=== PATIENT | female | born 1965 | race Caucasian/White ===

== ENCOUNTER → 2016-08-08 | Outpatient (CLI) | payer MEDICARE, OTHER ==
--- NOTE | 2016-08-08 15:11 | CT ---
CT right shoulder with contrast HISTORY: Pain, torn rotator cuff There is no comparison plain film Helical acquisition through the right shoulder following 100 cc Omni 300. No evident retraction of the rotator cuff. Difficult to exclude rotator cuff tear on the basis of thi s exam. There is hypertrophic change of the glenohumeral joint. Pseudocysts present in the humeral he ad. No abnormal enhancement following contrast administration. Distal acromial spur is present. Acrom ioclavicular joint arthropathy also present. No evident fracture or dislocation. Right lung shows emphysematous change, there is a pneumatocele present in the superior segment of th e right lower lobe. IMPRESSION: Correlate for impingement, rotator cuff tear not excluded on the basis of this exam. Jony ohumeral joint shows arthropathy change.
== END | disposition home or self-care (01) ==
LOC: RADCTMAIN 13:45
PROVIDERS: ATTEND Family Medicine
DX: M75.91 Shoulder lesion, unspecified, right shoulder (principal); M19.011 Primary osteoarthritis, right shoulder
CPT/HCPCS: 73201; Q9967

== ENCOUNTER → 2016-10-16 | Outpatient (CLI) | payer MEDICARE, OTHER ==
--- NOTE | 2016-10-20 23:13 | US ---
EXAMINATION TYPE: MSK ultrasound right shoulder DATE OF EXAM: 10/16/2016 COMPARISON: Correlation CT 08/08/2016 CLINICAL HISTORY: 50-year-old female M75.101 ROTATOR CUFF TEAR OF RT SHOULDER NO TRAUMA. . Patient wi th 2 1/2 months of worsening pain. Patient reports '4th time tearing the cuff with 3 prior surgeries. ' Recent steroid injection only lasted for a few days. TECHNIQUE: Multiple sonographic images of the right shoulder are obtained. FINDINGS: The long head biceps tendon is severely thickened, heterogeneous, and seems to contain a split tear. There is mild tenosynovial fluid along the long head biceps tendon sheath. Prominent bony irregularit y along the bicipital groove. Heterogeneity of the subscapularis tendon. The majority of the subscapularis tendon remains intact. Moderate degenerative joint space narrowing with marginal spurring and capsular hypertrophy at the ac romioclavicular joint. There is a full-thickness tear of the mid to posterior supraspinatus tendon fibers measuring 1.3 cm A P dimension. The torn stump is retracted by approximately 1.9 cm. There is fluid and debris within th e intervening gap. In addition, there is a 6 mm intrasubstance tear within the infraspinatus tendon with corresponding b narciso irregularity. Mild fluid within the lateral deltoid shelf communicating with the glenohumeral joint. Limited visualization of the posterior shoulder structures. No significant effusion within the it communications manager ior recess of the glenohumeral joint. Satisfactory supraspinatus and infraspinatus muscle bulk. No significant fatty infiltration. IMPRESSION: 1. Diffuse rotator cuff tendinosis. There is a full-thickness tear of the mid to posterior supraspina tus tendon (1.3 cm AP dimension) with the tendon stump retracted by 1.9 cm. 2. Additional small 6 mm intrasubstance tear of the infraspinatus tendon. 3. Marked long head biceps tendinosis with prominent spurring along the bicipital groove, associated tenosynovitis, and split tearing.
== END | disposition home or self-care (01) ==
LOC: RADUSWWP 12:56
PROVIDERS: ATTEND Family Medicine
DX: M75.121 Complete rotator cuff tear or rupture of right shoulder, not specified as traumatic (principal); S46.811A Strain of other muscles, fascia and tendons at shoulder and upper arm level, right arm, initial encounter; M75.21 Bicipital tendinitis, right shoulder; M65.811 Other synovitis and tenosynovitis, right shoulder

== ENCOUNTER 2019-05-04 16:36 | Emergency (ER) | payer MEDICARE, OTHER ==
[2019-05-04 17:24] VITALS: BP 137/75; PULSE 94; RESP 18; TEMP 97.9
--- NOTE | 2019-05-04 18:41 | ED ---
General Adult HPI - General Chief complaint: Extremity Problem,Nontraumatic Stated complaint: leg numbness/pain Time Seen by Provider: 05/04/19 18:16 Source: patient Mode of arrival: ambulatory Limitations: no limitations - History of Present Illness Initial comments: 53-year-old female who presents to emergency room today with a "charley horse" in the right groin area and some paresthesias in the right lower stomach from the knee distally. Patient reports that she has had intermittent discomfort in this area since November 2018. She states that she has had ultrasound completed. She states that she felt having increasing amount of pain. Today it is different because she has had paresthesias in the right lower extremity since 2:30 this afternoon and usually it only goes away after a minute. She denies any change in function to the leg. She denies any difficulty with walking. She denies any difficulty with flexion or extension at the joints. She denies any difference in strength of the lower extremities. Patient also reports that she had chest pain, onset was earlier today. She states as a sharp pain in the left side of the chest; relates "feels like a charley horse." It caused her to become diaphoretic. She states that she was nauseated but denied any vomiting. Has a history of hypertension and hyperlipidemia. She does smoke cigarettes on a regular basis. She denies any other complaints or concerns. - Related Data Allergies Allergy/AdvReac Type Severity Reaction Status Date / Time bee venom protein (honey bee) Allergy Swelling Verified 05/04/19 17:25 cephalexin [From Keflex] Allergy Swelling Verified 05/04/19 17:25 Penicillins Allergy Swelling Verified 05/04/19 17:25 sulfamethoxazole Allergy Swelling Verified 05/04/19 17:25 [From Bactrim] trimethoprim [From Bactrim] Allergy Swelling Verified 05/04/19 17:25 Review of Systems ROS Statement: Those systems with pertinent positive or pertinent negative responses have been documented in the HPI. ROS Other: All systems not noted in ROS Statement are negative. Past Medical History Past Medical History: Hypertension History of Any Multi-Drug Resistant Organisms: None Reported Additional Past Surgical History / Comment(s): back surgey, neck surgery, stent in carotid artery, carpal tunnel Past Psychological History: No Psychological Hx Reported Smoking Status: Current every day smoker Past Alcohol Use History: None Reported Past Drug Use History: None Reported General Exam Limitations: no limitations General appearance: alert, in no apparent distress Neck exam: Present: normal inspection Respiratory exam: Present: normal lung sounds bilaterally. Absent: respiratory distress, wheezes, rhonchi Cardiovascular Exam: Present: regular rate, normal rhythm, normal heart sounds GI/Abdominal exam: Present: soft, distended, tenderness, normal bowel sounds (There is tenderness to the right groin. There are 2+ bilateral femoral pulses.Bilateral pedal pulses. Tenderness right calf. Capillary refills less than 2 seconds. Sensation is intact.) Extremities exam: Present: normal inspection, full ROM, normal capillary refill, other (Full range of motion of the bilateral lower extremities with 5/5 strength testing against resistance of bilateral lower extremities at all joints. Patient is able to dorsiflex the bilateral great toes. There are 2+ bilateral pedal pulses. Capillary refill is less than 2 seconds. Patient's gait is normal and she walks around the emergency room with ease. Sensation is intact on exam bilateral lower extremities. There is mild tenderness in the right calf. There is moderate tenderness in the right groin. There are 2+ bilateral femoral pulses.) Neurological exam: Present: alert, oriented X3, normal gait, reflexes normal (2+ bilateral patellar reflexes, 2+ bilateral Achilles reflexes). Absent: motor sensory deficit Psychiatric exam: Present: normal affect, normal mood Skin exam: Present: warm, dry, intact, normal color Course Vital Signs 05/04/19 17:18 Temperature 97.9 F Pulse Rate 94 Respiratory 18 Rate Blood Pressure 137/75 O2 Sat by Pulse 98 Oximetry Medical Decision Making - Medical Decision Making 53-year-old female that presents to the emergency room today for evaluation of paresthesias in the right lower extremity and "charley horses" in her thigh as well as her chest. Patient had an ultrasound of the right lower extremity, venous, was negative for DVT. She does have 2+ bilateral pedal pulses with capillary refill less than 2 seconds. Sensation remains intact. She does report that she has some paresthesias in the right lower extremity from the knee distally, however sensation is intact. There is equal strength testing against resistance at all joints of the bilateral lower extremities. Patient requested pain medication, as was administered. In addition she had reported that she had "charley horse" chest pain and her chest left sided, patient has significant risk factors with hypertension hyperlipidemia and she is an every day cigarette smoker. She reported that she has a history of a coronary stent. Patient's EKG revealed normal sinus rhythm. She refused chest x-ray despite being encouraged to have a chest x-ray completed secondary to the pain in her chest. The patient was rude to staff on few occasions and had communicated via using obscenities. Patient and I discussed the reasoning for this testing and she did not want to have testing completed. I advised her that I was waiting for urinalysis as going to come back and reevaluate her. The patient became more upset and decided that she does not want to be in the emergency room any longer. I did discuss with patient that it would be best if she stayed here at the hospital for completion of care. I advised her that it was not a good idea to leave the hospital prior to completion of her care and then I wanted to admit her. She left AGAINST MEDICAL ADVICE. I went back to speak with her, however she was already gone. I wanted to admit the patient to the hospital for the discomfort that she was having in her chest secondary to her risk factors, however she left AGAINST MEDICAL ADVICE. - Lab Data Result diagrams: 05/04/19 19:34 05/04/19 19:34 Lab Results 05/04/19 05/04/19 05/04/19 Range/Units 19:34 19:34 19:34 WBC 7.4 (3.8-10.6) k/uL RBC 4.45 (3.80-5.40) m/uL Hgb 13.7 (11.4-16.0) gm/dL Hct 42.2 (34.0-46.0) % MCV 94.7 (80.0-100.0) fL MCH 30.7 (25.0-35.0) pg MCHC 32.4 (31.0-37.0) g/dL RDW 15.1 (11.5-15.5) % Plt Count 260 (150-450) k/uL Neutrophils % 65 % Lymphocytes % 25 % Monocytes % 5 % Eosinophils % 1 % Basophils % 3 % Neutrophils # 4.9 (1.3-7.7) k/uL Lymphocytes # 1.9 (1.0-4.8) k/uL Monocytes # 0.3 (0-1.0) k/uL Eosinophils # 0.1 (0-0.7) k/uL Basophils # 0.2 (0-0.2) k/uL Sodium 138 (137-145) mmol/L Potassium 3.8 (3.5-5.1) mmol/L Chloride 106 (98-107) mmol/L Carbon Dioxide 22 (22-30) mmol/L Anion Gap 10 mmol/L BUN 20 H (7-17) mg/dL Creatinine 0.91 (0.52-1.04) mg/dL Est GFR (CKD-EPI)AfAm 83 (>60 ml/min/1.73 sqM) Est GFR (CKD-EPI)NonAf 72 (>60 ml/min/1.73 sqM) Glucose 149 H (74-99) mg/dL Calcium 9.6 (8.4-10.2) mg/dL Total Bilirubin 0.5 (0.2-1.3) mg/dL AST 37 H (14-36) U/L ALT 33 (4-34) U/L Alkaline Phosphatase 57 (38-126) U/L Troponin I <0.012 (0.000-0.034) ng/mL Total Protein 7.4 (6.3-8.2) g/dL Albumin 4.5 (3.5-5.0) g/dL - EKG Data EKG shows normal: sinus rhythm EKG Comments: EKG was completed at 1855. Reveals normal sinus rhythm with a rate of 83. P1 38 QRS 78 QT/QTC 376/[address] elevation or depression noted. Disposition Clinical Impression: Right leg pain, Chest pain, Disturbance of skin sensation Disposition: Left Against Medical Advice Condition: Fair Is patient prescribed a controlled substance at d/c from ED?: No When asked, does pt state using other controlled substances?: No Referrals: Amrik Thorpe MD [Primary Care Provider] - 1-2 days
[2019-05-04 19:43] LABS: Basophils # (A) 0.2 k/uL (0-0.2); Basophils % (A) 3 %; Eosinophils # (A) 0.1 k/uL (0-0.7); Eosinophils % (A) 1 %; HCT 42.2 % (34.0-46.0); HGB 13.7 gm/dL (11.4-16.0); Lymphocytes # (A) 1.9 k/uL (1.0-4.8); Lymphocytes % (A) 25 %; MCH 30.7 pg (25.0-35.0); MCHC 32.4 g/dL (31.0-37.0); MCV 94.7 fL (80.0-100.0); Mean Platelet Volume 7.6; Monocytes # (A) 0.3 k/uL (0-1.0); Monocytes % (A) 5 %; Neutrophils # (A) 4.9 k/uL (1.3-7.7); Neutrophils % (A) 65 %; Platelet Count 260 k/uL (150-450); RBC 4.45 m/uL (3.80-5.40); RDW 15.1 % (11.5-15.5); WBC 7.4 k/uL (3.8-10.6)
[2019-05-04 19:54] LABS: Albumin 4.5 g/dL (3.5-5.0); Calcium 9.6 mg/dL (8.4-10.2); Total Bilirubin 0.5 mg/dL (0.2-1.3); Total Protein 7.4 g/dL (6.3-8.2)
[2019-05-04 20:00] LABS: Potassium 3.8 mmol/L (3.5-5.1)
[2019-05-04] MEDS ORDERED: MORPHINE SULFATE 4 MG/ML SYRINGE IV STA (20:14)
[2019-05-04] MEDS ORDERED: ONDANSETRON 4 MG/2 ML VIAL IVP STA (20:14)
--- NOTE | 2019-05-04 20:22 | US ---
EXAMINATION TYPE: US venous doppler duplex LE RT DATE OF EXAM: 05/04/2019 7:59 PM COMPARISON: NONE CLINICAL HISTORY: pain. Pain x 4 months. Worse x 6 hours. Numbness. No hx of DVT. Patient does not ta ke blood thinners. SIDE PERFORMED: Right TECHNIQUE: The lower extremity deep venous system is examined utilizing real time linear array sonog fredo with graded compression, doppler sonography and color-flow sonography. VESSELS IMAGED: External Iliac Vein (EIV) Common Femoral Vein Deep Femoral Vein Greater Saphenous Vein * Femoral Vein Popliteal Vein Small Saphenous Vein * Proximal Calf Veins (* superficial vessels) Right Leg: No evidence of DVT in veins imaged at this time from prox calf veins to EIV. IMPRESSION: Normal exam. No evidence of deep venous thrombosis on the right leg.
== END 2019-05-04 21:04 | disposition left against medical advice (07) ==
LOC: EC 16:36
DX: M79.604 Pain in right leg (principal); R07.9 Chest pain, unspecified; R20.2 Paresthesia of skin; R14.0 Abdominal distension (gaseous); R61 Generalized hyperhidrosis; R11.0 Nausea; F17.210 Nicotine dependence, cigarettes, uncomplicated; Z88.0 Allergy status to penicillin; Z88.1 Allergy status to other antibiotic agents; Z88.2 Allergy status to sulfonamides; Z91.030 Bee allergy status; Z86.79 Personal history of other diseases of the circulatory system; Z95.5 Presence of coronary angioplasty implant and graft; Z53.20 Procedure and treatment not carried out because of patient's decision for unspecified reasons
CPT/HCPCS: 36415; 93005; 80053; 84484; 85025; 93971; 99284; 96374; 96375; J2270; J2405

== ENCOUNTER → 2019-05-20 | Outpatient (CLI) | payer MEDICARE, OTHER | END | disposition home or self-care (01) | LOC: RADUSWWP 12:58 | PROVIDERS: ATTEND Family Medicine | DX: M79.661 Pain in right lower leg (principal); R20.2 Paresthesia of skin | CPT/HCPCS: 93923 ==

== ENCOUNTER 2019-06-11 17:33 | Observation (INO) | payer MEDICARE ==
[2019-06-11] MEDS ORDERED: ASPIRIN 81 MG PO STA (18:06)
--- NOTE | 2019-06-11 18:26 | ED ---
Chest Pain HPI - General Chief Complaint: Chest Pain Stated Complaint: Chest pain, leg numbness Time Seen by Provider: 06/11/19 18:06 Source: patient Mode of arrival: ambulatory Limitations: no limitations - History of Present Illness Initial Comments: Patient is a 53-year-old female with history of PAD and dyslipidemia presenting to emergency Department chief complaint of chest pain and leg pain. Patient states she's developed midsternal chest fullness about one hour prior to ED arrival. States the discomfort does not radiate anywhere. States the fullness is not exacerbated on exertion. Does report some light headedness whenever she stands up which started this morning. Does report some blurry vision but states that is her baseline due to some of the medication she is taking. Denies any diaphoretic episodes, shortness of breath or dyspnea. States she has a dull ache and a numbness and tingling sensation in the right lower extremity are baseline. States today she is also developed similar type symptoms in the left lower extremity up to the knee. States that she sees Dr. Norman in one week and is scheduled for an aortogram. Patient states she is known to have femoral and abdominal aorta occlusions. Denies abdominal pain or back pain. Denies any skin discoloration in the feet. Denies any temperature changes. - Related Data Allergies Allergy/AdvReac Type Severity Reaction Status Date / Time bee venom protein (honey bee) Allergy Swelling Verified 06/11/19 17:43 cephalexin [From Keflex] Allergy Swelling Verified 06/11/19 17:43 Penicillins Allergy Swelling Verified 06/11/19 17:43 sulfamethoxazole Allergy Swelling Verified 06/11/19 17:43 [From Bactrim] trimethoprim [From Bactrim] Allergy Swelling Verified 06/11/19 17:43 Review of Systems ROS Statement: Those systems with pertinent positive or pertinent negative responses have been documented in the HPI. ROS Other: All systems not noted in ROS Statement are negative. EKG Findings - EKG Comments: EKG Findings:: Sinus rhythm. Amitriptyline 90, OR 144, QRS 80, QTC 440. Past Medical History Past Medical History: Hypertension History of Any Multi-Drug Resistant Organisms: None Reported Additional Past Surgical History / Comment(s): back surgey, neck surgery, stent in carotid artery, carpal tunnel Past Psychological History: No Psychological Hx Reported Smoking Status: Current every day smoker Past Alcohol Use History: None Reported Past Drug Use History: None Reported General Exam Limitations: no limitations General appearance: alert, in no apparent distress Head exam: Present: atraumatic, normocephalic, normal inspection Eye exam: Present: normal appearance, PERRL, EOMI Pupils: Present: normal accommodation ENT exam: Present: normal exam, normal oropharynx, mucous membranes moist, TM's normal bilaterally, normal external ear exam Neck exam: Present: normal inspection, full ROM Respiratory exam: Present: normal lung sounds bilaterally. Absent: respiratory distress, wheezes, rales Cardiovascular Exam: Present: regular rate, normal rhythm, normal heart sounds GI/Abdominal exam: Present: soft. Absent: distended, tenderness, guarding, rebound Extremities exam: Present: normal inspection (Bilateral lower extremities are warm, nontender, not cyanotic.), full ROM, other (Able to detect dorsalis pedis and posterior tibialis on right lower extremity with ultrasound. Unable to detect the posterior tibialis on the left lower extremity but this has penis is detectable with ultrasound.). Absent: pedal edema Back exam: Present: normal inspection, full ROM Neurological exam: Present: alert, oriented X3 Psychiatric exam: Present: normal affect, normal mood Skin exam: Present: warm, dry, intact, normal color Course Vital Signs 06/11/19 06/11/19 17:40 18:35 Temperature 97.7 F Pulse Rate 73 87 Respiratory 18 20 Rate Blood Pressure 150/82 114/72 O2 Sat by Pulse 99 98 Oximetry Chest Pain MDM - Differential Diagnosis ACS - MDM Patient 53-year-old female with history of dyslipidemia and severe PVD presenting to emergency Department with a chief complaint of leg pain and chest pain. Patient is not to have bilateral lower extremity arterial occlusions. More so on the right than the left. She does have asymptomatic right leg up to the hip at baseline. Her left lower extremity is a symptomatically until today she has developed similar symptoms up to her knee. I was able to detect pulses using a Doppler in bilateral lower extremities. They're both warm with no signs of cyanosis. CT angios aorta with thoracic and abdominal runoff performed. Imaging shows moderately to severe stenosis of the lower abdominal aorta with extensive plaque formation. Multiple areas of plaque formation femoral arteries with at least 50% stenosis noted as well. No signs of aortic aneurysm, dissection or evidence of a pulmonary embolism. EKG shows normal sinus rhythm with no ST changes. Initial troponins are negative. CBC CMP is unremarkable. Considering the risk factors, , patient will be admitted for observation and serial troponins. Case discussed with . admitting physician is Dr. Anders Norman on consult. Disposition Clinical Impression: Chest pain, Abdominal aortic stenosis, Femoral artery stenosis, Left leg pain Disposition: ADMITTED IP TO THIS HOSP Condition: Stable Instructions (If sedation given, give patient instructions): Chest Pain (ED) Additional Instructions: Patient will be admitted Is patient prescribed a controlled substance at d/c from ED?: No Referrals: Amrik Thorpe MD [Primary Care Provider] - 1-2 days Time of Disposition: 20:11
[2019-06-11 18:32] LABS: Basophils % (A) 1 %; Eosinophils # (A) 0.1 k/uL (0-0.7); Eosinophils % (A) 1 %; HCT 39.9 % (34.0-46.0); HGB 12.9 gm/dL (11.4-16.0); Lymphocytes # (A) 1.4 k/uL (1.0-4.8); Lymphocytes % (A) 20 %; MCH 30.5 pg (25.0-35.0); MCHC 32.4 g/dL (31.0-37.0); MCV 94.1 fL (80.0-100.0); Mean Platelet Volume 7.6; Monocytes # (A) 0.7 k/uL (0-1.0); Monocytes % (A) 9 %; Neutrophils # (A) 4.7 k/uL (1.3-7.7); Neutrophils % (A) 66 %; Platelet Count 207 k/uL (150-450); RBC 4.23 m/uL (3.80-5.40); RDW 14.8 % (11.5-15.5); WBC 7.1 k/uL (3.8-10.6)
[2019-06-11 18:37] LABS: Partial Thromboplastin Time 23.3 sec (22.0-30.0); Prothrombin Time 9.9 sec (9.0-12.0)
[2019-06-11 18:38] LABS: ALT 40 U/L (4-34); AST 34 U/L (14-36); African American GFR (CKD) >90 (>60 ml/min/1.73 sqM); Albumin 4.4 g/dL (3.5-5.0); Alkaline Phosphatase 78 U/L (38-126); Anion Gap 11 mmol/L; Blood Urea Nitrogen 11 mg/dL (7-17); Calcium 9.7 mg/dL (8.4-10.2); Carbon Dioxide 22 mmol/L (22-30); Chloride 107 mmol/L (98-107); Glucose 137 mg/dL (74-99); Magnesium 1.9 mg/dL (1.6-2.3); Non-African American GFR(CKD) >90 (>60 ml/min/1.73 sqM); Sodium 140 mmol/L (137-145); Total Bilirubin 0.2 mg/dL (0.2-1.3); Total Protein 7.1 g/dL (6.3-8.2)
--- NOTE | 2019-06-11 19:06 | XR ---
EXAMINATION TYPE: XR chest 2V DATE OF EXAM: 06/11/2019 COMPARISON: 02/06/2016 HISTORY: Chest pain TECHNIQUE: 2 views FINDINGS: Heart and mediastinum are normal. Lungs are clear. Diaphragm is normal. Bony thorax appears normal. IMPRESSION: Normal chest. No change.
--- NOTE | 2019-06-11 19:42 | CT ---
CT scan angiogram of the chest abdomen pelvis with runoff. History bilateral leg weakness. Comparison none. TECHNIQUE: Multiple axial sections were obtained from the thoracic inlet to the bottom of the feet without and s ubsequently with intravenous contrast Isovue 100 mL. There are 3-D post processed images. FINDINGS: The lungs are clear of infiltrate. There is no evidence of a pulmonary mass. Heart size is normal. Th ere is coronary artery calcification. There is no thoracic aortic aneurysm or dissection. I see no fi lling defects in the pulmonary arteries. There is no mediastinal adenopathy. There are no hilar tyler s. There is no pleural effusion. Liver spleen stomach pancreas appear normal. There are clips from azucena cystectomy. Bile ducts are not dilated. There is no adrenal mass. Kidneys show normal size. There is satisfactory contrast opacification of the kidneys. There is no hydronephrosis. There is 3 cm cortica l cyst medial left kidney. There is some atheromatous change in the abdominal aorta. Ureters are not dilated. There is no retroperitoneal adenopathy. Bladder distends smoothly. Uterus is anteverted. The re is no free fluid in the pelvis. There is no inguinal hernia. Appendix is anterior and appears norm al. There is no mesenteric edema. There is no evidence of a bowel obstruction. There is no ascites or free air. There is patency of the celiac artery and superior mesenteric artery. There is bilateral patency of t he renal arteries. There is some plaque formation of the posterior wall of the lower abdominal aorta. There is stenosis of the lower abdominal aorta with lumen measuring 5 mm. There is bilateral patency of the iliac and femoral arteries. There is variable plaque formation in both superficial femoral arteries with areas of up to 50% steno sis. There is patency of the popliteal arteries. There is patency of the tibial arteries in the tibia l artery trifurcation. The tibial arteries appear small. There is arterial flow in the anterior tibia l arteries at the ankle bilaterally. There is bilateral posterior tibial artery flow at the ankles. I see no evidence of aneurysm or dissection. IMPRESSION: There is moderately severe stenosis of the lower abdominal aorta. Extensive plaque formation in the a bdominal aorta. Multiple areas of plaque formation in the femoral arteries with up to at least 50% stenosis. No aortic aneurysm or dissection. No evidence of pulmonary embolism.
[2019-06-11] MEDS ORDERED: NITROGLYCERIN SL TABS 0.4 MG TAB SUBLINGUAL PRN (20:12)
[2019-06-11] MEDS ORDERED: GABAPENTIN 300 MG CAP PO PRN (21:31)
[2019-06-11] MEDS ORDERED: CYCLOBENZAPRINE 10 MG TAB PO SCH (21:45)
[2019-06-11] MEDS ORDERED: MELOXICAM 7.5 MG TAB PO SCH (21:45)
[2019-06-11] MEDS ORDERED: LISINOPRIL-HCTZ 20-12.5 MG 1 EACH TAB PO SCH (21:45)
[2019-06-11] MEDS ORDERED: ATORVASTATIN 40 MG TAB PO SCH (21:45)
[2019-06-12 06:42] LABS: Cholesterol 164 mg/dL (<200); HDL Cholesterol 41 mg/dL (40-60); LDL Cholesterol,Calculated 85 mg/dL (0-99); Triglycerides 191 mg/dL (<150)
[2019-06-12 07:17] VITALS: BP 98/64; PULSE 72; RESP 18; TEMP 97.6
[2019-06-12] MEDS ORDERED: ASPIRIN 81 MG PO SCH (09:00)
[2019-06-12] MEDS ORDERED: ASPIRIN 325 MG TAB PO SCH (09:00)
--- NOTE | 2019-06-21 12:07 | DS ---
DISCHARGE SUMMARY DATE OF ADMISSION: 06/11/2019 DATE OF DISCHARGE: 06/12/2019 MEDICATIONS: 1. Mobic 7.5 daily. 2. Lipitor 40 mg daily. 3. Lisinopril hydrochlorothiazide 1 tab b.i.d. 26/03.5. 4. Flexeril 10 mg at night. 5. Oxycodone IR 30 mg at bedtime. 6. Oxycodone IR 5 mg t.i.d. 7. Neurontin 300 mg q.i.d. CONDITION: Stable. PROGNOSIS: Good. HOSPITAL COURSE OF EVENTS: This is a white female who came into the hospital and who was admitted and had aortic with runoff test due to possible blockage in her legs, which did show multiple blockages for which she is being seen with Dr. Katz with moderate severe stenosis, lower abdominal aortic and excessive system plaque and abdominal aorta. Please see further orders. MMODL / IJN: [id number] /
--- NOTE | 2019-06-21 20:07 | HP ---
HISTORY AND PHYSICAL [id number]-old white female came into the emergency room with chest pain and leg pain, midsternal chest pain about an hour prior to admission. She was admitted to the hospital with some blurred vision and some lower extremity pain. She is supposed to get an aortogram. She was admitted. ALLERGIES: ALLERGIES ARE TO BEE VENOM, CEPHALEXIN, BACTRIM. REVIEW OF SYSTEMS: Fourteen-point review of systems negative except for what is mentioned in the history of present illness. EKG: Sinus rhythm. PAST MEDICAL HISTORY: Hypertension, COPD, coronary artery disease with stent in the LAD. PAST SURGICAL HISTORY: Neck surgery, back surgery. Current everyday smoker. PHYSICAL EXAMINATION: VITAL SIGNS: Vital signs stable. Afebrile. Temperature 97.7, pulse 70s to 80s, respiratory rate 18 to 20, blood pressure is 114 to 150 over 70s to 80s, O2 98% to 99%. CARDIOVASCULAR: S1 and S2. LUNGS: Transmitted upper airway sounds. HEMATOLOGY: Negative Homans'. PSYCH: Fair mood and affect. NEUROLOGIC: Alert and oriented x3. VASCULAR: Normal dorsalis pedis, posterior tibial and radial pulse. SKIN: Warm,dry, intact. ASSESSMENT: Atypical chest pain, aortic stenosis of the abdominal aorta, femoral artery stenosis, left leg pain. Currently she was admitted to al and she will be discharged home today. Follow up with Dr. Katz after ruled out for coronary artery disease. JOSE CRUZL / FRANCISN: [id number] /
== END 2019-06-12 08:31 | disposition left against medical advice (07) ==
LOC: EC 17:33 → 1SOBS 20:04
PROVIDERS: ADMIT Family Medicine; ATTEND Family Medicine
DX: R07.89 Other chest pain (principal); R42 Dizziness and giddiness; H53.8 Other visual disturbances; M79.605 Pain in left leg; R20.0 Anesthesia of skin; Z53.29 Procedure and treatment not carried out because of patient's decision for other reasons; E78.5 Hyperlipidemia, unspecified; I10 Essential (primary) hypertension; J44.9 Chronic obstructive pulmonary disease, unspecified; I25.10 Atherosclerotic heart disease of native coronary artery without angina pectoris; G56.00 Carpal tunnel syndrome, unspecified upper limb; F17.200 Nicotine dependence, unspecified, uncomplicated; I70.0 Atherosclerosis of aorta; I70.203 Unspecified atherosclerosis of native arteries of extremities, bilateral legs; Z88.0 Allergy status to penicillin; Z88.1 Allergy status to other antibiotic agents; Z88.2 Allergy status to sulfonamides; Z91.030 Bee allergy status; Z95.5 Presence of coronary angioplasty implant and graft; Z95.828 Presence of other vascular implants and grafts; Z79.899 Other long term (current) drug therapy
CPT/HCPCS: 93005 ×2; 99285; 36415; 80061; 80053; 83735; 84484 ×2; 85025; 85610; 85730; 71046; 75635; 71275; G0378 ×2; Q9967

== ENCOUNTER 2019-06-18 11:06 | Day surgery (SDC) | payer MEDICARE ==
[2019-06-17 11:09] VITALS: BMI 29.6
[2019-06-18 11:31] VITALS: RESP 16; TEMP 97.8
[2019-06-18 20:41] VITALS: PULSE 84
[2019-06-18 20:45] VITALS: BP 138/82
== END 2019-06-18 18:00 | disposition home or self-care (01) ==
LOC: CATHCVL 11:06
PROVIDERS: ATTEND Internal Medicine Interventional Cardiology
DX: I70.0 Atherosclerosis of aorta (principal); I74.5 Embolism and thrombosis of iliac artery; I73.9 Peripheral vascular disease, unspecified; I10 Essential (primary) hypertension; E78.5 Hyperlipidemia, unspecified; F17.210 Nicotine dependence, cigarettes, uncomplicated; I25.10 Atherosclerotic heart disease of native coronary artery without angina pectoris; Z95.5 Presence of coronary angioplasty implant and graft; Z79.899 Other long term (current) drug therapy; Z79.82 Long term (current) use of aspirin; Z91.030 Bee allergy status; Z88.1 Allergy status to other antibiotic agents; Z88.0 Allergy status to penicillin; Z88.2 Allergy status to sulfonamides; Z82.49 Family history of ischemic heart disease and other diseases of the circulatory system
CPT/HCPCS: 36200; 75625; 75716; C1769 ×2; C1894; J2250; J2001; J1644; Q9966

== ENCOUNTER → 2019-08-09 | Outpatient (CLI) | payer MEDICARE | END | disposition home or self-care (01) | LOC: LABWHC1 11:41 | PROVIDERS: ATTEND Internal Medicine Interventional Cardiology | DX: Z53.9 Procedure and treatment not carried out, unspecified reason (principal) ==

== ENCOUNTER 2019-08-11 08:34 | Day surgery (SDC) | payer MEDICARE ==
[2019-08-05 12:38] VITALS: BMI 31.6
[~2019-08-11 08:34] MED LIST: ALPRAZolam 0.25 MG TAB PO PRN; ASPIRIN 325 MG TAB PO STA; SODIUM CHLORIDE 0.9% 1,000 ML in EMPTY BAG 1 BAG IV ONE
[2019-08-11 08:56] VITALS: RESP 18
[2019-08-11] MEDS ORDERED: MIDAZOLAM 2 MG/2 ML VIAL IVP ONE ×2 (09:28)
[2019-08-11] MEDS ORDERED: LIDOCAINE 1% INJ 10MG/ML (20 ML MDV) SQ ONE (09:29)
[2019-08-11] MEDS ORDERED: HEPARIN SODIUM 1,000 UN/ML (10ML VL) IV ONE ×2 (09:33→10:16)
[2019-08-11] MEDS ORDERED: HYDROmorphone 1 MG/ML 1 ML SYRINGE IVP ONE (09:34)
[2019-08-11] MEDS ORDERED: GABAPENTIN 300 MG CAP PO PRN (10:13)
[2019-08-11] MEDS ORDERED: SODIUM CHLORIDE 0.9% 1,000 ML in EMPTY BAG 1 BAG IV SCH (10:15)
[2019-08-11] MEDS ORDERED: CLOPIDOGREL 75 MG TAB PO ONE (10:16)
[2019-08-11] MEDS ORDERED: IOPAMIDOL-250 100ML BTL INTRAARTER ONE (10:17)
--- NOTE | 2019-08-11 10:39 | P.PCN ---
Date of Procedure: 08/11/19 Operative Findings: PERCUTANEOUS PERIPHERAL ARTERIAL INTERVENTION Performing physician: Ruslan Katz MD, [facility] Procedure performed: 1. Successful stenting of the infrarenal aorta using 8.0 x 39 mm ICAST stent with an excellent angiographic results 2. Intravascular ultrasound (IVUS) of the infrarenal aorta as well as a right common iliac artery 3. An angiogram of the infrarenal aorta 4. Right common iliac artery angiogram 5. Right common femoral artery angiogram Indication: This is a 53-year-old female patient with significant history of smoking who was experiencing bilateral lower extremities intermittent claudication severe enough and interfering with her daily activity, consistent with Maureen class IIa. She underwent initially a CTA subsequently an angiogram that revealed critical disease involving the infrarenal aorta which was extremely calcified. Because of that she was brought today to undergo an intervention. Approach: Right common femoral artery Complication: None Level of sedation: Moderate with a sedation length of 40 minutes Procedure description: After obtaining an informed consent the patient was brought to the cardiac label press operator. The right common femoral artery was cannulated using micropuncture technique, the micropuncture wire passed easily then I place a 7-Nigerien only 3 cm bright tip at the right common femoral artery over an 035 stiff Glidewire. At that point anticoagulation was initiated using heparin and the patient was given a total of 8000 use of heparin was 5000 at the beginning of the procedure and 3000 at the end of the procedure. Please note that continuous ACT monitoring was done. At that point I did across the lesion at the aorta using an 035 stiff Glidewire. I attempted crossing the lesion using an 035 glide advantage wire but that was unsuccessful. I did cross the lesion using stiff Glidewire with a backup support of 035 CXR I catheter. Subsequently I did exchange my 035 stiff Glidewire into an [address] wire repairing to do intravascular ultrasound of the aorta. I did advance the ultrasound catheter over the 014 wire proximal to the lesion then I did manual pullback all the way to the right common iliac artery. The intravascular ultrasound revealed extremely calcified aorta with eccentric plaque appears to be in the range of at least 70-80% involving the infrarenal aorta. There was also another plaque involving the ostial right common iliac artery seems to be in the range of 60-70%. I confirm that by doing an angiogram with injection through the sheath itself which revealed the location and plaque of the infrarenal aorta as well as location and plaque of the right ostial common iliac artery. After reviewing everything I decided to stent the infrarenal aorta and treat medically the lesion of the right common iliac artery because it was not flow-limiting. At that point I did do balloon angioplasty of the infrarenal aorta using initially 6 mm Angiosculp balloon and subsequently 7 mm regular balloon. Subsequently I deployed 8.0 x 39 mm ICAST balloon expandable stent where the stent was prepped and advanced over the 035 glide advantage wire to the infrarenal aorta after angiogram was performed and the screen was fixed and marked as well. The stent was deployed under 12 bernadette for about 30 seconds. The final angiogram showed excellent angiographic results and the procedure at that point was completed without any complication Subsequently I did exchange my 23 cm bright tip sheath into an 11 cm 7-Nigerien sheath using the glide advantage wire. By the end I did selective right common femoral artery angiogram. The procedure was completed without any complication Postprocedure management: 1. Dual antiplatelet therapy 2. Smoking cessation 3. Follow-up with the patient
[2019-08-11] MEDS: LISINOPRIL-HCTZ 20-12.5 MG 1 EACH TAB PO SCH (19:39)
[2019-08-11] MEDS ORDERED: ATORVASTATIN 40 MG TAB PO SCH (21:00)
[2019-08-11] MEDS ORDERED: CYCLOBENZAPRINE 10 MG TAB PO SCH (21:00)
[2019-08-11] MEDS ORDERED: MELOXICAM 7.5 MG TAB PO SCH (21:00)
[2019-08-12 06:14] LABS: Basophils % (A) 1 %; Eosinophils # (A) 0.1 k/uL (0-0.7); Eosinophils % (A) 2 %; HCT 39.8 % (34.0-46.0); HGB 13.5 gm/dL (11.4-16.0); Lymphocytes # (A) 1.6 k/uL (1.0-4.8); Lymphocytes % (A) 21 %; MCH 32.5 pg (25.0-35.0); MCV 95.7 fL (80.0-100.0); Mean Platelet Volume 7.1; Monocytes # (A) 0.7 k/uL (0-1.0); Monocytes % (A) 10 %; Neutrophils # (A) 4.8 k/uL (1.3-7.7); Neutrophils % (A) 64 %; Platelet Count 201 k/uL (150-450); RBC 4.16 m/uL (3.80-5.40); RDW 14.7 % (11.5-15.5); WBC 7.5 k/uL (3.8-10.6)
[2019-08-12 06:24] LABS: African American GFR (CKD) >90 (>60 ml/min/1.73 sqM); Anion Gap 6 mmol/L; Blood Urea Nitrogen 19 mg/dL (7-17); Calcium 9.4 mg/dL (8.4-10.2); Carbon Dioxide 24 mmol/L (22-30); Chloride 106 mmol/L (98-107); Glucose 100 mg/dL (74-99); Non-African American GFR(CKD) >90 (>60 ml/min/1.73 sqM); Potassium 4.5 mmol/L (3.5-5.1); Sodium 136 mmol/L (137-145)
[2019-08-12 08:12] VITALS: BP 114/60; PULSE 91; TEMP 98.6
[2019-08-12] MEDS: LISINOPRIL-HCTZ 20-12.5 MG 1 EACH TAB PO SCH (08:13)
--- NOTE | 2019-08-12 08:29 | P.DS ---
Providers Date of admission: August 102019 Attending physician: Ruslan Katz Primary care physician: [facility] Hospital Course: This is a 53-year-old female patient who was diagnosed recently was critical disease involving the infrarenal aorta causing her to have severe bilateral lower extremities intermittent claudication. She underwent yesterday successful percutaneous stenting of the infrarenal aorta using covered stent with an excellent angiographic results and without any complication from a right groin approach. She was seen and examined this morning. The right groin is soft and nontender and without any bruises. She is going to be discharged on dual antiplatelet therapy along with a statin. I will follow-up with the patient next week in the office Plan - Discharge Summary Discharge Rx Participant: No New Discharge Prescriptions: New Clopidogrel [Plavix] 75 mg PO DAILY #90 tab Continue Meloxicam [Mobic] 7.5 mg PO HS Atorvastatin [Lipitor] 40 mg PO HS Lisinopril-Hctz 20-12.5 mg [Zestoretic 20-12.5] 1 tablet PO BID Cyclobenzaprine [Flexeril] 10 mg PO HS oxyCODONE HCL [oxyCODONE HCL (IR)] 30 mg PO HS oxyCODONE HCL [oxyCODONE HCL (IR)] 5 mg PO TID Gabapentin [Neurontin] 300 mg PO QID PRN PRN Reason: Muscle Pain Aspirin 325 mg PO DAILY Discharge Medication List Atorvastatin [Lipitor] 40 mg PO HS 06/11/19 [History] Cyclobenzaprine [Flexeril] 10 mg PO HS 06/11/19 [History] Gabapentin [Neurontin] 300 mg PO QID PRN 06/11/19 [History] Lisinopril-Hctz 20-12.5 mg [Zestoretic 20-12.5] 1 tablet PO BID 06/11/19 [History] Meloxicam [Mobic] 7.5 mg PO HS 06/11/19 [History] oxyCODONE HCL [oxyCODONE HCL (IR)] 5 mg PO TID 06/11/19 [History] oxyCODONE HCL [oxyCODONE HCL (IR)] 30 mg PO HS 06/11/19 [History] Aspirin 325 mg PO DAILY 08/05/19 [History] Clopidogrel [Plavix] 75 mg PO DAILY #90 tab 08/12/19 [Rx] Follow up Appointment(s)/Referral(s): Ruslan Katz MD [STAFF PHYSICIAN] - 1 Week
[2019-08-12] MEDS ORDERED: CLOPIDOGREL 75 MG TAB PO SCH (09:00)
[2019-08-12] MEDS ORDERED: ASPIRIN 325 MG TAB PO SCH (09:00)
--- NOTE | 2019-08-12 09:58 | IR ---
Fluoroscopy HISTORY: Pain 11.3 minutes fluoroscopy time supplied to the referring clinician. 178 intraoperative C-arm images d ocument the procedure. See dictated report from cardiology.
== END 2019-08-12 10:45 | disposition home or self-care (01) ==
LOC: CATHCVL 08:34 → 3SCARD 10:12 → CATHCVL 08-12 10:45
PROVIDERS: ATTEND Internal Medicine Interventional Cardiology
DX: I70.0 Atherosclerosis of aorta (principal); I70.213 Atherosclerosis of native arteries of extremities with intermittent claudication, bilateral legs; I10 Essential (primary) hypertension; E78.5 Hyperlipidemia, unspecified; F17.210 Nicotine dependence, cigarettes, uncomplicated; Z95.820 Peripheral vascular angioplasty status with implants and grafts; Z82.49 Family history of ischemic heart disease and other diseases of the circulatory system; Z79.1 Long term (current) use of non-steroidal anti-inflammatories (NSAID); Z79.82 Long term (current) use of aspirin; Z79.891 Long term (current) use of opiate analgesic; Z79.899 Other long term (current) drug therapy; Z88.2 Allergy status to sulfonamides; Z88.1 Allergy status to other antibiotic agents; Z91.030 Bee allergy status
CPT/HCPCS: 37236; 37252; 80048; 85025; C1894 ×2; C1874; C1769 ×4; C1725; C1753; J2250; J2001; J1644; J1170; Q9966; 37237

== ENCOUNTER → 2023-02-26 | Outpatient (CLI) | payer MEDICARE ==
--- NOTE | 2023-02-26 14:17 | CTL ---
EXAMINATION TYPE: CT Low Dose Lung DATE OF EXAM: 02/26/2023 2:04 PM CLINICAL INDICATION:Female, 57 years old with history of Z12.2 ENCNTR SCREEN FOR MALIGNANT NEOPLASM,F 17.210; personal hx of nicotine dependence, COPD , history of tobacco use. COMPARISON: None. TECHNIQUE: Multiple axial non-contrast scans were obtained from approximately the lung apices through the upper abdomen. Coronal and sagittal reformatted images were obtained. Low dose technique was uti lized. CT DLP: 63 mGycm, Automated exposure control for dose reduction was used. CT Contrast: Contrast used: None Oral contrast used: None FINDINGS: ======== Lack of intravenous contrast and low dose technique limits the evaluation of the vascular and soft ti ssue structures. LUNGS: No evidence of pulmonary fibrosis. No evidence of focal consolidation, pneumothorax or pleural effusion. Mild centrilobular emphysema changes throughout the lungs. Nodules: RUL: 3 mm series 10 image 9, intrafissural lymph node along the minor fissure series 10 image 29 RML: None. RLL: None. AMIRA: None. LLL: None. AIRWAY: Patent and unremarkable. HEART: Size within normal limits. Atherosclerosis of the coronary arteries. MEDIASTINUM: No gross evidence of adenopathy. VASCULATURE: Atherosclerotic calcifications are present throughout the aorta and its branches. MUSCULOSKELETAL: Moderate disc degeneration changes are present throughout the thoracolumbar spine. SOFT TISSUES/LYMPH NODES: Unremarkable. LOWER NECK: No significant findings. UPPER ABDOMEN: The gallbladder surgically absent. IMPRESSION: 1. No clinically significant pulmonary nodules. 2. Mild emphysema changes. CT LUNG RAD AND CT CHEST RECOMMENDATION: Lung-Rad 2 Benign Appearance or Behavior: Continue annual sc reening with LDCT in 12 months. S Modifier (other clinically significant findings): None Recommend smoking cessation (if current smoker), or continuation of smoking cessation (if prior smoke r). Annual screening for lung cancer with low-dose computed tomography is recommended in adults ages 55 to 77 years who have a 30 pack-year smoking history and currently smoke or have quit within the pa st 15 years. Screening should be discontinued once a person has not smoked for 15 years or develops a health problem that substantially limits life expectancy or the ability or willingness to have curat beka lung surgery. Lung rads 2021 [email or web address]
== END | disposition home or self-care (01) ==
LOC: RADCTMAIN 13:27
PROVIDERS: ATTEND Family Medicine
DX: Z12.2 Encounter for screening for malignant neoplasm of respiratory organs (principal); J43.2 Centrilobular emphysema; F17.210 Nicotine dependence, cigarettes, uncomplicated
CPT/HCPCS: 71271

== ENCOUNTER 2023-08-13 17:59 | Emergency (ER) | payer MEDICARE ==
[2023-08-13 18:42] VITALS: BP 126/61; PULSE 79; RESP 18; TEMP 97.8
--- NOTE | 2023-08-13 18:42 | ED ---
Fall HPI - General Source: patient, RN notes reviewed Mode of arrival: ambulatory <Folwer Chopra - Last Filed: 08/13/23 18:40> - General Source: patient, RN notes reviewed <Lucinda Zunigana - Last Filed: 08/13/23 21:21> - General Chief Complaint: Fall Stated Complaint: Fall Time Seen by Provider: 08/13/23 18:12 - History of Present Illness Initial Comments: Ivy bharti is a 57-year-old female presents emergency department chief complaint of a fall that occurred last week on 08/04. States that she was getting out of a lifted truck when she slipped and fell hitting her face. states that the patient was unconscious for a few moments. She has been experiencing mild headache in addition to bruising on her anterior forehead and bilateral eyes. Denies use of blood thinners. (Flower Chopra) 57-year-old female presenting with chief complaint of head injury that occurred on 08/04, approximately 1 week ago. Patient states that she was getting out of a truck when she slipped and fell onto the cement of her driveway, landing directly on her face. reports she was unconscious for approximately 5 seconds. Patient states she is still having increased pressure behind her eyes and in her head. She also admits some episodes of blurry vision when she is trying to focus on an object. Denies headache, weakness, numbness, tingling. She takes a baby aspirin daily but denies any other blood thinners. Denies other injuries. (Hellen Zuniga) - Related Data Home Medications Medication Instructions Recorded Confirmed Atorvastatin [Lipitor] 40 mg PO HS 06/11/19 08/13/23 Cyclobenzaprine [Flexeril] 10 mg PO HS PRN 06/11/19 08/13/23 Gabapentin [Neurontin] 300 mg PO HS 06/11/19 08/13/23 Lisinopril-Hctz 20-12.5 mg 1 tablet PO BID 06/11/19 08/13/23 [Zestoretic 20-12.5] Meloxicam [Mobic] 7.5 mg PO DAILY 06/11/19 08/13/23 Aspirin 325 mg PO DAILY 08/05/19 08/13/23 Topiramate [Topamax] 100 mg PO BID 08/13/23 08/13/23 traMADol HCL 50 mg PO TID PRN 08/13/23 08/13/23 Allergies Allergy/AdvReac Type Severity Reaction Status Date / Time bee venom protein (honey bee) Allergy Anaphylaxis, Verified 08/13/23 19:36 Swelling all over body cephalexin [From Keflex] Allergy Anaphylaxis, Verified 08/13/23 19:36 Swelling all over body ciprofloxacin [From Cipro] Allergy Anaphylaxis, Verified 08/13/23 19:36 Swelling all over body Penicillins Allergy Anaphylaxis, Verified 08/13/23 19:36 Swelling all over body sulfamethoxazole Allergy Anaphylaxis, Verified 08/13/23 19:36 [From Bactrim] Swelling all over body trimethoprim [From Bactrim] Allergy Anaphylaxis, Verified 08/13/23 19:36 Swelling all over body Review of Systems ROS Other: All systems not noted in ROS Statement are negative. <Flower Chopra - Last Filed: 08/13/23 18:40> ROS Other: All systems not noted in ROS Statement are negative. <Hellen Zuniga - Last Filed: 08/13/23 21:21> ROS Statement: Those systems with pertinent positive or pertinent negative responses have been documented in the HPI. Past Medical History Past Medical History: Hypertension Additional Past Medical History / Comment(s): PAD. Pain in Saurav leg/hips. History of Any Multi-Drug Resistant Organisms: None Reported Past Surgical History: Section Additional Past Surgical History / Comment(s): back surgey, neck surgery, stent in carotid artery, carpal tunnel, BL knees scope Past Anesthesia/Blood Transfusion Reactions: No Reported Reaction Past Psychological History: No Psychological Hx Reported Smoking Status: Current every day smoker Past Alcohol Use History: None Reported Past Drug Use History: None Reported - Past Family History Mother Family Medical History: Cancer Additional Family Medical History / Comment(s): Breast, mets to brain, liver, lungs <Flower Chopra - Last Filed: 08/13/23 18:40> General Exam Limitations: no limitations <Flower Chopra - Last Filed: 08/13/23 18:40> General appearance: alert, in no apparent distress Head exam: Present: other (Contusion present on left side superior portion of scalp. +ttp along left parietal portion of scalp.) Eye exam: Present: PERRL, EOMI, periorbital tenderness. Absent: normal appearance (Contusions present around bilateral eyes and on bilateral forehead. + Raccoon eyes. Diffuse tender to palpation around periorbital bones.), conjunctival injection Pupils: Present: normal accommodation ENT exam: Present: normal exam, mucous membranes moist, TM's normal bilaterally (Negative Bowles sign) Neck exam: Present: normal inspection. Absent: tenderness, meningismus, lymphadenopathy Respiratory exam: Present: normal lung sounds bilaterally. Absent: respiratory distress, wheezes, rales, rhonchi, stridor Cardiovascular Exam: Present: regular rate, normal rhythm, normal heart sounds. Absent: systolic murmur, diastolic murmur, rubs, gallop, clicks Extremities exam: Present: normal inspection, full ROM, normal capillary refill. Absent: tenderness, pedal edema, joint swelling, calf tenderness Neurological exam: Present: alert, oriented X3, CN II-XII intact Skin exam: Present: warm, dry, intact, normal color. Absent: rash <Hellen Zuniga - Last Filed: 08/13/23 21:21> - General Exam Comments Initial Comments: Visual Physical Exam Vital signs reviewed General: Well-appearing, nontoxic, no acute distress. Head: Normocephalic, atraumatic Eyes: PERRLA, EOMI ENT: Airway patent Chest: Nonlabored breathing Skin: No visual rash, normal skin tone Neuro: Alert and oriented 3 Musculoskeletal: No gross abnormalities (Flower Chopra) Course Vital Signs 08/13/23 18:20 Temperature 97.8 F Pulse Rate 79 Respiratory 18 Rate Blood Pressure 126/61 O2 Sat by Pulse 96 Oximetry Medical Decision Making <Flower Chopra - Last Filed: 08/13/23 18:40> <Hellen Zuniga - Last Filed: 08/13/23 21:21> - Medical Decision Making I completed the quick note portion of this chart signed Flower Chopra PA-C (Flower Chopra) Was pt. sent in by a medical professional or institution ([facility] Batista, CALL CENTER SUPPORT REPRESENTATIVE, urgent care, hospital, or care home...) When possible be specific @ -No Did you speak to anyone other than the patient for history (EMS, parent, family, police, friend...)? What history was obtained from this source @ -Patient's supplemented history Did you review nursing and triage notes (agree or disagree)? Why? @ -I reviewed and agree with nursing and triage notes Were old charts reviewed (outside hosp., previous admission, EMS record, old EKG, old radiological studies, urgent care reports/EKG's, care home records)? Report findings @ -No old charts were reviewed Differential Diagnosis (chest pain, altered mental status, abdominal pain women, abdominal pain men, vaginal bleeding, weakness, fever, dyspnea, syncope, headache, dizziness, GI bleed, back pain, seizure, CVA, palpatations, mental health, musculoskeletal)? @ -Intracranial bleed, concussion, hematoma, facial fracture, cervical fracture EKG interpreted by me (3pts min.). @ -None X-rays interpreted by me (1pt min.). @ -None done CT interpreted by me (1pt min.). @ -CT of facial bones and brain negative for acute process U/S interpreted by me (1pt. min.). @ -None done What testing was considered but not performed or refused? (CT, X-rays, U/S, labs)? Why? @ -None What meds were considered but not given or refused? Why? @ -None Did you discuss the management of the patient with other professionals (professionals i.e. , PA, CALL CENTER SUPPORT REPRESENTATIVE, lab, RT, psych nurse, healthcare social worker, litigation services manager, teacher, security officer, caseworker protective services)? Give summary @ -No Was smoking cessation discussed for >3mins.? @ -No Was critical care preformed (if so, how long)? @ -No Were there social determinants of health that impacted care today? How? (Homelessness, low income, unemployed, alcoholism, drug addiction, transportation, low edu. Level, literacy, decrease access to med. care, retirement, r ehab)? @ -No Was there de-escalation of care discussed even if they declined (Discuss DNR or withdrawal of care, Hospice)? DNR status @ -No What co-morbidities impacted this encounter? (DM, HTN, Smoking, COPD, CAD, Cancer, CVA, ARF, Chemo, Hep., AIDS, mental health diagnosis, sleep apnea, morbid obesity)? @ -None Was patient admitted / discharged? Hospital course, mention meds given and route, prescriptions, significant lab abnormalities, going to OR and other pertinent info. @ -Patient was discharged. Patient was seen and evaluated for head injury 8 days ago. +LOC. Patient continues to experience head pressure and episodes of blurry vision. CT of brain and facial bones are negative for acute process. Small frontal scalp hematoma present. Discussed diagnosis of concussion with patient. Supportive care discussed. Strict alarm/return symptoms discussed with patient and patient shows understanding and agrees. Discussed close follow-up with PCP. Patient discharged in stable condition. Case discussed with Dr. Hall. Undiagnosed new problem with uncertain prognosis? @ -No Drug Therapy requiring intensive monitoring for toxicity (Heparin, Nitro, Insulin, Cardizem)? @ -No Were any procedures done? @ -No Diagnosis/symptom? @ -Concussion Acute, or Chronic, or Acute on Chronic? @ -Acute Uncomplicated (without systemic symptoms) or Complicated (systemic symptoms)? @ -Uncomplicated Side effects of treatment? @ -No Exacerbation, Progression, or Severe Exacerbation? @ -No Poses a threat to life or bodily function? How? (Chest pain, [place], [place], pneumonia, PE, COPD, DKA, ARF, appy, cholecystitis, CVA, Diverticulitis, Homicidal, Suicidal, threat to staff... and all critical care pts) @ -No (Hellen Zuniga) Disposition <Flower Chopra - Last Filed: 08/13/23 18:40> Is patient prescribed a controlled substance at d/c from ED?: No Time of Disposition: 21:10 <Hellen Zuniga - Last Filed: 08/13/23 21:21> Clinical Impression: Concussion Disposition: HOME SELF-CARE Condition: Stable Instructions (If sedation given, give patient instructions): Concussion (ED) Additional Instructions: Please return to the Emergency Department if symptoms worsen or any other concerns. Referrals: Amrik Yusuf MD [REFERRING] - 1-2 days
--- NOTE | 2023-08-13 19:41 | CT ---
EXAMINATION TYPE: CT brain wo con CT DLP: combined 826.6 mGycm, Automated exposure control for dose reduction was used. DATE OF EXAM: 08/13/2023 7:07 PM COMPARISON: None.. CLINICAL INDICATION:Female, 57 years old with history of fall, bruising, fall TECHNIQUE: Brain: Axial CT images of the brain were obtained with coronal and sagittal reformats created and rev iewed. Contrast used: None. Oral contrast used: None. FINDINGS: Extra-axial spaces: No abnormal extra-axial fluid collections. Basilar cisterns are patent. Ventricular system: Ventricles appear mildly dilated in proportion to the degree of cerebral atrophy. Cerebral parenchyma: No increased attenuation to suggest acute intraparenchymal hemorrhage. The gra y-white matter interface appears maintained. Mild generalized brain atrophy. White matter unremarka ble by CT. Cerebellum: No acute abnormality. Mass effect: No evidence of mass effect or midline shift. Intracranial vasculature: Unremarkable Soft tissues: Small subgaleal scalp hematoma in the left anterior frontal region measuring 4 mm in th ickness. Visualized orbits: Orbital contents appear grossly intact. Calvarium/osseous structures: No evidence of calvarial fracture. Paranasal sinuses and mastoid air cells: Clear. MRI is more sensitive for detecting acute processes such as infarct, and may be considered if clinica lly warranted. IMPRESSION: * No acute intracranial CT abnormality. * Small left anterior frontal scalp hematoma.
--- NOTE | 2023-08-13 19:54 | CT ---
EXAMINATION TYPE: CT facial bones wo con CT DLP: combined 826.6 mGycm, Automated exposure control for dose reduction was used. DATE OF EXAM: 08/13/2023 7:07 PM COMPARISON: . CLINICAL INDICATION:Female, 57 years old with history of fall, injury; PHH, fall TECHNIQUE: Multiple unenhanced axial CT images were obtained of the facial bones soft tissue and bone windows. Coronal, axial and sagittal reformatted images were also provided in soft tissue and bone windows and submitted for interpretation. Additional 3-D reformatted images were obtained on a [employer] workstation. FINDINGS: There is no evidence of facial bone fracture, subluxation, dislocation, or significant soft tissue sw elling. The orbital contents are unremarkable.The temporal-mandibular joints appear symmetric. Mild a nterior translation of the TMJs is likely positional. The visualized portion of the paranasal sinuses appear clear. The cervical spine is partially seen. There is ACDF hardware at the C4-C5 level, one of the screws at C4 (on the left) appears to erode or extend slightly into the disc space, while the other is within the substance of the vertebral body. The C5 screws appear intact and well seated within the bone. The re are moderate degenerative changes present, most significant at the C3-C4 level where there is post erior broad-based disc bulge plus small disc marginal osteophytes, which in combination extend 4 mm p osteriorly into the spinal canal, almost certainly indenting the anterior thecal sac and probably anson cing mild mass effect on the anterior cord. There are similar findings at C4-C5 however composed most ly of osteophytes, and little remaining disc. Multilevel mild to moderate multilevel neural foraminal stenoses are also suggested. No traumatic malalignment or acute fracture is seen in the visualized p ortions of the C-spine. No acute soft tissue abnormality is seen. There are moderate to heavy calcifications noted in the inv olving the bilateral cervical carotid arteries, mostly in the bifurcation regions. IMPRESSION: 1. No evidence of acute facial bone fracture. 2. Chronic/degenerative changes in the cervical spine, as detailed above. 3. Moderate to heavy calcifications of the bilateral cervical carotid arteries.
== END 2023-08-13 21:21 | disposition home or self-care (01) ==
LOC: EC 17:59
DX: S06.0X9A Concussion with loss of consciousness of unspecified duration, initial encounter (principal); S00.03XA Contusion of scalp, initial encounter; R40.2362 Coma scale, best motor response, obeys commands, at arrival to emergency department; R40.2142 Coma scale, eyes open, spontaneous, at arrival to emergency department; R40.2252 Coma scale, best verbal response, oriented, at arrival to emergency department; F17.200 Nicotine dependence, unspecified, uncomplicated; Z88.1 Allergy status to other antibiotic agents; Z88.0 Allergy status to penicillin; Z88.2 Allergy status to sulfonamides; Z91.030 Bee allergy status; W17.89XA Other fall from one level to another, initial encounter
CPT/HCPCS: 70450; 70486; 99284

== ENCOUNTER → 2024-02-04 | Outpatient (CLI) | payer MEDICARE ==
--- NOTE | 2024-02-06 20:50 | CT ---
EXAMINATION TYPE: CT abdomen pelvis wo con DATE OF EXAM: 02/04/2024 COMPARISON: None INDICATION: Abdominal pain, hematuria, r/o bladder ca DLP: 274.70 mGycm, Automated exposure control for dose reduction was used. CONTRAST: 0 mL of Isovue 300. Study performed without Oral Contrast TECHNIQUE: Axial images were obtained from above the diaphragm to the pubic rami in the axial plane a t 5 mm thick sections. Reconstructed images are reviewed on the computer in the coronal plane. FINDINGS: Limited CT sections are obtained the lung bases. The lung bases are clear. CT ABDOMEN: Liver: Normal Spleen: Normal Pancreas: Normal Adrenal glands: The adrenal glands are normal. Gallbladder: Surgically absent Kidneys: No masses are evident. No hydronephrosis is present. There is a 2.9 cm cyst medial mid lef t kidney. There is a 0.2 cm nonobstructing calcification within the mid right kidney. Aorta: Dense vascular calcifications within the aorta. There may be narrowing of the flow lumen. Inferior vena cava: Normal. CT PELVIS: Loops of bowel within the abdomen and pelvis are normal. The study is lateral contrast limiting b owel evaluation. Appendix: Not identified. No dilated tubular structure or inflammatory changes evident Urinary bladder: Normal. Genitourinary structures: Uterus is unremarkable. Adnexa are normal. Osseous structures: No suspicious lytic or sclerotic lesions. IMPRESSION: 1. Nonobstructing punctate right renal stone. 2. Left renal cysts. 3. Urinary bladder partially decompressed and without contrast limiting its evaluation. The patient's urinary bladder cancer is not identified. No suspicious changes to suggest metastatic disease. [facility], , 02/06/2024 8:48 PM
== END | disposition home or self-care (01) ==
LOC: RADCTMAIN 15:01
PROVIDERS: ATTEND Family Medicine
DX: D12.6 Benign neoplasm of colon, unspecified (principal); N20.0 Calculus of kidney; N28.1 Cyst of kidney, acquired
CPT/HCPCS: 74176

== ENCOUNTER → 2024-03-03 | Outpatient (CLI) | payer MEDICARE ==
[2024-03-03 16:04] LABS: Basophils # (A) 0.03 X 10*3/uL (0.00-0.10); Basophils % (A) 0.4 %; Eosinophils # (A) 0.04 X 10*3/uL (0.04-0.35); Eosinophils % (A) 0.6 %; HCT 35.1 % (37.2-46.3); HGB 11.6 g/dL (12.0-15.0); Lymphocytes # (A) 1.66 X 10*3/uL (0.90-5.00); Lymphocytes % (A) 24.7 %; MCH 32.1 pg (27.0-32.0); MCV 97.2 FL (80.0-97.0); Mean Platelet Volume 9.8 FL (9.5-12.2); Monocytes # (A) 0.71 X 10*3/uL (0.20-1.00); Monocytes % (A) 10.6 %; NRBC Per 100 WBC 0 X 10*3/uL (0.00-0.01); Neutrophils # (A) 4.26 X 10*3/uL (1.80-7.70); Neutrophils % (A) 63.4 %; Platelet Count 202 X 10*3/uL (140-440); RBC 3.61 X 10*6/uL (4.10-5.20); RDW 13.9 % (11.5-14.5); WBC 6.72 X 10*3/uL (4.50-10.00)
[2024-03-03 16:22] LABS: ALT 14 U/L (8-44); AST 21 U/L (13-35); Albumin 4.2 g/dL (3.8-4.9); Albumin/Globulin Ratio 1.91 Ratio (1.60-3.17); Alkaline Phosphatase 98 U/L (41-126); BUN/Creat Ratio 16.09 Ratio (12.00-20.00); Blood Urea Nitrogen 17.7 mg/dL (9.0-27.0); Calcium 9.1 mg/dL (8.7-10.3); Carbon Dioxide 20.1 mmol/L (21.6-31.8); Chloride 103 mmol/L (96-109); Globulin 2.2 g/dL (1.6-3.3); Glucose 88 mg/dL (70-110); Potassium 3.7 mmol/L (3.5-5.5); Sodium 135 mmol/L (135-145); Total Bilirubin <0.2 mg/dL (0.3-1.2); Total Protein 6.4 g/dL (6.2-8.2)
[2024-03-03 19:05] LABS: Appearance,Urine Clear (Clear); Bilirubin,Urine Negative (Negative); Blood,Urine Negative (Negative); Color,Urine Yellow (Yellow); Ketones,Urine Negative (Negative); Nitrite,Urine Negative (Negative); Specific Gravity,Urine 1.012 (1.001-1.030); Urobilinogen,Urine 0.2 E.U./DL
== END | disposition home or self-care (01) ==
LOC: LABWHC1 12:47
PROVIDERS: ATTEND Urology
DX: Z00.00 Encounter for general adult medical examination without abnormal findings (principal); R31.9 Hematuria, unspecified
CPT/HCPCS: 36415; 80053; 81003; 85025; 87086

== ENCOUNTER → 2024-05-28 | Outpatient (CLI) | payer MEDICARE ==
--- NOTE | 2024-05-28 10:44 | CT ---
EXAMINATION TYPE: CT cervical spine wo con CT DLP: 383 mGycm, Automated exposure control for dose reduction was used. DATE OF EXAM: 05/28/2024 10:10 AM COMPARISON: CT low-dose lung 02/26/2023. CLINICAL INDICATION:Female, 58 years old with history of M50.30 DISC DEGENERATION, UNSP CERVICAL CODEY ON; PHH, Cervical pain, disc degeneration, pain TECHNIQUE: Axial CT images from the skull base to the inferior aspect of T2 we obtained without intra venous contrast. Coronal and sagittal reformatted images were also reviewed. FINDINGS: Fracture: None. Osseous structures: Multilevel degenerative disc disease changes with endplate spurring and disc oste ophyte complex's. Postsurgical changes from anterior cervical fusion C4-C5. The left C4 screw has ero ded with surrounding lucency through the superior endplate of the C4 vertebral body extending into th e disc space. No surrounding lucency involving the remaining 3 screws. The fixation plate is slightly oriented towards the right at its superior aspect. Multilevel anterior osteophytosis at C3-C4, C5-C6 and C6-C7. Additionally at T1-T2. Vertebral alignment: Within normal limits. Spinal canal/Neural Foramina: Central disc protrusion at C2-C3 with mild effacement of anterior thecal sac. No significant central canal stenosis. No significant neural foraminal stenosis at this level. Posterior disc osteophyte complex with mild effacement of the anterior thecal sac at C3-C4. Mild left neural foraminal stenosis. The right neural foramen is patent. Posterior disc osteophyte complex of mild to moderate effacement of the anterior thecal sac at C4-C5. The right neural foramen is patent. Moderate left neural foraminal stenosis. Posterior disc osteophyte complex with a mild to moderate effacement of the anterior left thecal sac at C5-C6. There is moderate left neural foraminal stenosis. The right neural foramen is mildly narrow ed. Posterior disc osteophyte complex with a mild to moderate effacement of the anterior left thecal sac at C6-C7. There is severe left neural foraminal stenosis. [id number] right neural foraminal le nosis. Other: The airway is patent. Stable right upper lobe 3.5 mm pulmonary nodule. Bilateral carotid bulb calcifications with right greater than left. IMPRESSION: 1. No evidence of cervical spine fracture. 2. Postsurgical changes from ACDF at C4-C5. The left C4 screw has eroded through the superior endplat e into the C3-C4 disc space. 3. Moderate multilevel degenerative disc disease as described above. [facility], , 05/28/2024 10:41 AM
== END | disposition home or self-care (01) ==
LOC: RADCTMAIN 09:47
PROVIDERS: ATTEND Psychiatry & Neurology Neurology
DX: M50.30 Other cervical disc degeneration, unspecified cervical region (principal); M99.71 Connective tissue and disc stenosis of intervertebral foramina of cervical region; Z98.1 Arthrodesis status
CPT/HCPCS: 72125